=== PATIENT | female | born 1945 | race African-American/Black ===

== ENCOUNTER 2019-07-15 13:13 | Emergency (ER) | payer OTHER ==
[~2019-07-15] VITALS: Ht 162.6 cm; Wt 84.0 kg
[2019-07-15 15:11] VITALS: BP 153/86
[2019-07-15] MEDS ORDERED: ACETAMINOPHEN 325MG TABLET PO ONE (15:30)
[2019-07-15 16:08] LABS: BASOPHILS % 0.7 % (0.0-2.0); EOSINOPHILS % 4.6 % (0.0-5.0); HEMOGLOBIN. 12.7 g/dL (12.0-16.0); LYMPHOCYTES % 25.4 % (20.0-50.0); MEAN CORPUSCULAR HEMOGLOBIN 28.9 pg (28.0-32.0); MEAN CORPUSCULAR VOLUME 84.2 fL (81.0-99.0); MEAN PLATELET VOLUME 8.6 fl (7.4-10.4); MONOCYTES % 6.6 % (2.0-8.0); NEUTROPHILS % 62.7 % (40.0-76.0); PLATELET 237 x1000/uL (130-400)
[2019-07-15 16:16] LABS: CHLORIDE 106 mEq/L (98-107)
== END 2019-07-15 17:56 | disposition home or self-care (01) ==
LOC: ER 13:13
DX: M25.511 Pain in right shoulder (principal); R07.89 Other chest pain; I10 Essential (primary) hypertension; E78.00 Pure hypercholesterolemia, unspecified; M19.90 Unspecified osteoarthritis, unspecified site; Z88.0 Allergy status to penicillin; H40.9 Unspecified glaucoma; V49.88XA Car occupant (driver) (passenger) injured in other specified transport accidents, initial encounter; Y93.89 Activity, other specified; Y92.89 Other specified places as the place of occurrence of the external cause; Y99.8 Other external cause status
CPT/HCPCS: 36415; 71101; 73030; 80048; 84484; 93005; 99284

== ENCOUNTER 2020-03-21 11:01 | Emergency (ER) | payer OTHER ==
[~2020-03-21] VITALS: Ht 172.7 cm; Wt 77.0 kg
[2020-03-21] MEDS ORDERED: ONDANSETRON 4MG ODT PO STA (11:33)
[2020-03-21] MEDS ORDERED: MECLIZINE 25MG TABLET PO ONE (11:45)
[2020-03-21 11:52] LABS: BASOPHILS % 1.2 % (0.0-2.0); EOSINOPHILS % 2.8 % (0.0-5.0); HEMATOCRIT. 39.7 % (36.0-48.0); HEMOGLOBIN. 13.7 g/dL (12.0-16.0); LYMPHOCYTES % 25.4 % (20.0-50.0); MEAN CORPUSCULAR HEMOGLOBIN 29.3 pg (28.0-32.0); MEAN CORPUSCULAR VOLUME 84.9 fL (81.0-99.0); MEAN PLATELET VOLUME 8.6 fl (7.4-10.4); MONOCYTES % 5.1 % (2.0-8.0); NEUTROPHILS % 65.5 % (40.0-76.0); PLATELET 264 x1000/uL (130-400); RED BLOOD CELL COUNT 4.67 mill/uL (4.2-5.4); RED CELL DISTRIBUTION WIDTH 14.2 % (11.6-14.6)
[2020-03-21 11:57] LABS: CHLORIDE 105 mEq/L (98-107); PROTHROMBIN TIME 10.7 sec (9.6-11.0)
[2020-03-21 12:07] LABS: CLARITY URINE CLEAR (CLEAR); COLOR URINE YELLOW (YELLOW); KETONES URINE NEGATIVE (NEGATIVE); LEUKOCYTE ESTERASE URINE NEGATIVE (NEGATIVE); NITRITE URINE NEGATIVE (NEGATIVE); OCCULT BLOOD URINE 1+ (NEGATIVE); PROTEIN URINE NEGATIVE (NEGATIVE); SPECIFIC GRAVITY URINE 1.019 (1.005-1.030); UROBILINOGEN URINE 0.2 E.U./dL (0.2-1.0)
[2020-03-21 16:01] VITALS: BP 149/77
== END 2020-03-21 16:20 | disposition short-term general hospital (02) ==
LOC: ER 11:27
DX: R42 Dizziness and giddiness (principal); R11.2 Nausea with vomiting, unspecified; Z85.9 Personal history of malignant neoplasm, unspecified; E78.00 Pure hypercholesterolemia, unspecified; I10 Essential (primary) hypertension; Z88.0 Allergy status to penicillin
CPT/HCPCS: 36415; 70450; 80053; 81003; 84484; 85025; 85610; 93005; 99285; J8597; Q0162